=== PATIENT | female | born 1985 | race Caucasian/White ===

== ENCOUNTER 2017-07-27 21:53 | Emergency (ER) | payer MEDICAID ==
[~2017-07-27] VITALS: Ht 154.9 cm; Wt 60.8 kg
[~2017-07-27 21:53] MED LIST: AFRIN15 ML NS; AMOXICILLIN 50500 M1 PO; BAYER ADVANCED500 MG PO; CIPROFLOXACIN500 M1 PO; HYDROCODON-ACE1 EACH PO; IBUPROFEN 800800 M1 PO; IRON325 PO; MEDROLDOSEPACK PO; MOBIC7.5 MG PO; NAPROSYN500 M1 PO; NAPROSYN500 MG; NOHOMEMEDICATIONS; NORCO 5-325 TA1 EACH PO; PHENAZOPYRIDIN200 M2 PO; ROBAXIN500 MG PO; TIZANIDINE HCL4 M1; ULTRAM 50MG TAB50 MG PO; VICODIN 5-5001 EACH PO; ZANTAC 150MG T150 MG PO; ZOFRAN ODT4 MG PO; ZPAK PO
[2017-07-27 22:06] LABS: URINE BILIRUBIN NEGATIVE (Negative); URINE BLOOD NEGATIVE (Negative); URINE CLARITY CLEAR; URINE COLOR YELLOW; URINE GLUCOSE-RANDOM NEGATIVE (Negative); URINE KETONES NEGATIVE (Negative); URINE LEUKOCYTES-REFLEX NEGATIVE (Negative); URINE NITRITE-REFLEX NEGATIVE (Negative); URINE PROTEIN NEGATIVE (Negative); URINE SPECIFIC GRAVITY 1.015 (1.005-1.030)
[2017-07-27] MEDS ORDERED: ZOFRAN ODT4 MG DISSOLVE (22:06)
[2017-07-27 22:34] LABS: ABSOLUTE BASOPHILS 0.1 thou/uL (0.0-0.2); ABSOLUTE EOSINOPHILS 0.5 thou/uL (0.0-0.7); ABSOLUTE LYMPHOCYTES 2.9 thou/uL (0.8-5.3); ABSOLUTE MONOCYTES 0.6 thou/uL (0.0-1.2); ABSOLUTE NEUTROPHILS 5.2 thou/uL (1.6-8.1); BASOPHILS 0.9 %; EOSINOPHILS 5.1 %; HEMATOCRIT 37.7 % (37.0-47.0); HEMOGLOBIN 13.4 gm/dL (12.0-15.0); LYMPHOCYTES 30.9 %; MCH 32.3 pg (26.0-34.0); MCHC 35.5 g/dL (28.0-37.0); MCV 91.1 fL (80.0-100.0); MONOCYTES 6.8 %; MPV 7.1 fl. (7.2-11.1); NUCLEATED RBCS 0 /100WBC; PLATELET COUNT* 273 thou/uL (150-400); POLYS 56.3 %; RBC 4.13 mil/uL (4.20-5.00); RDW-CV 12.1 % (10.5-14.5); WBC 9.2 thou/uL (4.0-11.0)
[2017-07-27 22:53] LABS: CALCIUM 8.6 mg/dL (8.5-10.1); CREATININE 0.7 mg/dL (0.6-1.3); POTASSIUM 3.5 mmol/L (3.5-5.1)
[2017-07-27 22:58] LABS: ALBUMIN 3.9 g/dL (3.4-5.0); TOTAL BILIRUBIN 0.3 mg/dL (<0.1-1.0); TOTAL PROTEIN 7.2 g/dL (6.4-8.2)
[2017-07-27] MEDS ORDERED: PROTONIX40 M1 PO (23:09)
[2017-07-27 23:25] VITALS: BP 128/75
== END 2017-07-27 23:15 | disposition home or self-care (01) ==
LOC: M.ERS 21:53
PROVIDERS: Physician Assistant
DX: K29.00 Acute gastritis without bleeding (principal); M19.90 Unspecified osteoarthritis, unspecified site; F17.210 Nicotine dependence, cigarettes, uncomplicated; Z90.710 Acquired absence of both cervix and uterus; Z88.1 Allergy status to other antibiotic agents; Z88.2 Allergy status to sulfonamides; Z88.8 Allergy status to other drugs, medicaments and biological substances

== ENCOUNTER 2020-09-15 19:54 | Emergency (ER) | payer OTHER ==
[~2020-09-15] VITALS: Ht 154.9 cm; Wt 66.0 kg
[~2020-09-15 19:54] MED LIST changes: +PROTONIX40 M1 PO; +ZOFRAN ODT4 MG DISSOLVE
[2020-09-15 20:16] LABS: URINE BILIRUBIN NEGATIVE (Negative); URINE BLOOD TRACE (Negative); URINE CLARITY CLEAR; URINE COLOR YELLOW; URINE GLUCOSE-RANDOM NEGATIVE (Negative); URINE KETONES NEGATIVE (Negative); URINE LEUKOCYTES-REFLEX NEGATIVE (Negative); URINE NITRITE-REFLEX NEGATIVE (Negative); URINE PROTEIN NEGATIVE (Negative); URINE SPECIFIC GRAVITY >= 1.030 (1.005-1.030); URINE UROBILINOGEN 0.2 E.U./dl (0.2-1.0)
[2020-09-15 20:28] LABS: ABSOLUTE BASOPHILS 0.1 thou/uL (0.0-0.2); ABSOLUTE EOSINOPHILS 0.2 thou/uL (0.0-0.7); ABSOLUTE LYMPHOCYTES 2.4 thou/uL (0.8-5.3); ABSOLUTE MONOCYTES 0.7 thou/uL (0.0-1.2); ABSOLUTE NEUTROPHILS 5.4 thou/uL (1.6-8.1); BASOPHILS 0.8 %; EOSINOPHILS 1.7 %; HEMATOCRIT 37.3 % (37.0-47.0); HEMOGLOBIN 13.1 gm/dL (12.0-15.0); LYMPHOCYTES 27.5 %; MCH 32.3 pg (26.0-34.0); MCHC 35.2 g/dL (28.0-37.0); MCV 91.8 fL (80.0-100.0); MONOCYTES 8.4 %; MPV 6.9 fl. (7.2-11.1); NUCLEATED RBCS 0 /100WBC; PLATELET COUNT* 265 thou/uL (150-400); POLYS 61.6 %; RBC 4.07 mil/uL (4.20-5.00); RDW-CV 11.9 % (10.5-14.5); WBC 8.8 thou/uL (4.0-11.0)
[2020-09-15 20:37] LABS: CALCIUM 9.2 mg/dL (8.5-10.1); CREATININE 0.8 mg/dL (0.6-1.3); POTASSIUM 3.7 mmol/L (3.5-5.1)
[2020-09-15 20:39] LABS: ALBUMIN 3.8 g/dL (3.4-5.0)
[2020-09-15 20:58] LABS: TOTAL BILIRUBIN 0.4 mg/dL (<0.1-1.0); TOTAL PROTEIN 7.1 g/dL (6.4-8.2)
[2020-09-15 22:02] LABS: AMP/METHAMP Negative (Negative); BARBITURATES Negative (Negative); BENZODIAZEPINES Negative (Negative); COCAINE Negative (Negative); METHADONE Negative (Negative); OPIATES Negative (Negative); PCP Negative (Negative); THC Negative (Negative)
[2020-09-15] MEDS ORDERED: FLEXERIL PO (22:14)
[2020-09-15] MEDS ORDERED: HYDROCODON-ACE1 EAC8 PO (22:14)
[2020-09-15 22:50] VITALS: BP 117/81
== END 2020-09-15 22:50 | disposition home or self-care (01) ==
LOC: M.ERS 19:54
PROVIDERS: Emergency Medicine
DX: S20.212A Contusion of left front wall of thorax, initial encounter (principal); M19.90 Unspecified osteoarthritis, unspecified site; F17.210 Nicotine dependence, cigarettes, uncomplicated; Z88.1 Allergy status to other antibiotic agents; Z90.710 Acquired absence of both cervix and uterus; Z98.890 Other specified postprocedural states; Z87.442 Personal history of urinary calculi; Z90.49 Acquired absence of other specified parts of digestive tract; Z88.2 Allergy status to sulfonamides; Z88.6 Allergy status to analgesic agent; Z79.899 Other long term (current) drug therapy; W00.0XXA Fall on same level due to ice and snow, initial encounter; Y93.89 Activity, other specified; Y92.89 Other specified places as the place of occurrence of the external cause; Y99.8 Other external cause status

== ENCOUNTER 2020-10-13 16:18 | Emergency (ER) | payer OTHER ==
[~2020-10-13] VITALS: Ht 154.9 cm; Wt 60.8 kg
[~2020-10-13 16:18] MED LIST changes: +FLEXERIL PO; +HYDROCODON-ACE1 EAC8 PO
[2020-10-13 17:22] LABS: ABSOLUTE BASOPHILS 0.1 thou/uL (0.0-0.2); ABSOLUTE EOSINOPHILS 0.1 thou/uL (0.0-0.7); ABSOLUTE LYMPHOCYTES 2.1 thou/uL (0.8-5.3); ABSOLUTE MONOCYTES 0.6 thou/uL (0.0-1.2); ABSOLUTE NEUTROPHILS 6.6 thou/uL (1.6-8.1); BASOPHILS 0.8 %; EOSINOPHILS 1.5 %; HEMATOCRIT 41.5 % (37.0-47.0); HEMOGLOBIN 14.3 gm/dL (12.0-15.0); LYMPHOCYTES 22.3 %; MCH 31.9 pg (26.0-34.0); MCHC 34.5 g/dL (28.0-37.0); MCV 92.7 fL (80.0-100.0); MONOCYTES 6.7 %; NUCLEATED RBCS 0 /100WBC; PLATELET COUNT* 278 thou/uL (150-400); POLYS 68.7 %; RBC 4.47 mil/uL (4.20-5.00); RDW-CV 12.1 % (10.5-14.5); WBC 9.6 thou/uL (4.0-11.0)
[2020-10-13 17:32] LABS: CALCIUM 9.3 mg/dL (8.5-10.1); CREATININE 0.7 mg/dL (0.6-1.3); POTASSIUM 3.4 mmol/L (3.5-5.1)
[2020-10-13 17:37] LABS: ALBUMIN 4.1 g/dL (3.4-5.0); TOTAL BILIRUBIN 0.5 mg/dL (<0.1-1.0); TOTAL PROTEIN 7.9 g/dL (6.4-8.2)
[2020-10-13] MEDS ORDERED: FLEXERIL PO (17:46)
[2020-10-13] MEDS ORDERED: KLONOPIN0.5 MG PO (17:46)
[2020-10-13 18:09] VITALS: BP 112/80
--- NOTE | 2020-10-14 09:59 | EKG ---
[place] [address] ELECTROCARDIOGRAM REPORT Name: JANIYA VAZQUEZ Room: [facility]#: [id number] Admission: 10/13/20 Attend Phys: Discharge: 10/13/20 Date of : 89 Date of Service: 10/13/20 170 Report #: [id number] THIS REPORT FOR: //name// [facility] ED Test Date: 2020-10-13 Test Time: 17:02:59 Pat Name: JANIYA VAZQUEZ Department: Room: Gender: Electrical Systems Engineer: Wali : 1985 Requested By: Melba Rosenthal Order Number: [id number] MD: Sandro Hubbard Measurements Intervals [place] Rate: 76 P: 58 [place]: 137 QRS: 64 QRSD: 112 T: 60 QT: 394 QTc: 444 Interpretive Statements Sinus rhythm Borderline intraventricular conduction delay No previous ECG available for comparison Electronically Signed On 10-14-2020 9:58:48 CDT by Sandro Hubbard [email or web address] <ELECTRONICALLY SIGNED> By: Sandro Hubbard MD, [facility] 10/14/20 0958 01 01 Sandro Hubbard MD, FAC /EPI
== END 2020-10-13 18:09 | disposition home or self-care (01) ==
LOC: M.ERS 16:18
PROVIDERS: Nurse Practitioner Family
DX: F41.9 Anxiety disorder, unspecified (principal); I25.10 Atherosclerotic heart disease of native coronary artery without angina pectoris; M19.90 Unspecified osteoarthritis, unspecified site; F32.9 Major depressive disorder, single episode, unspecified; F17.210 Nicotine dependence, cigarettes, uncomplicated; Z88.1 Allergy status to other antibiotic agents; Z88.2 Allergy status to sulfonamides; Z88.6 Allergy status to analgesic agent; Z90.710 Acquired absence of both cervix and uterus; Z98.890 Other specified postprocedural states; Z87.442 Personal history of urinary calculi; Z90.49 Acquired absence of other specified parts of digestive tract

== ENCOUNTER 2020-12-15 15:29 | Emergency (ER) | payer OTHER ==
[~2020-12-15] VITALS: Ht 154.9 cm; Wt 60.8 kg
[~2020-12-15 15:29] MED LIST changes: +KLONOPIN0.5 MG PO
[2020-12-15 15:30] VITALS: BP 118/69
[2020-12-15] MEDS ORDERED: METHOCARBAMOL500 M2 PO (16:26)
== END 2020-12-15 16:57 | disposition home or self-care (01) ==
LOC: M.ERS 15:29
DX: F41.9 Anxiety disorder, unspecified (principal); M54.6 Pain in thoracic spine; F32.9 Major depressive disorder, single episode, unspecified; M19.90 Unspecified osteoarthritis, unspecified site; F17.210 Nicotine dependence, cigarettes, uncomplicated; Z90.711 Acquired absence of uterus with remaining cervical stump; Z98.890 Other specified postprocedural states; Z87.442 Personal history of urinary calculi; Z90.49 Acquired absence of other specified parts of digestive tract; Z88.1 Allergy status to other antibiotic agents; Z88.2 Allergy status to sulfonamides; Z88.8 Allergy status to other drugs, medicaments and biological substances

== ENCOUNTER 2021-02-03 17:26 | Emergency (ER) | payer OTHER ==
[~2021-02-03] VITALS: Ht 154.9 cm; Wt 60.8 kg
[~2021-02-03 17:26] MED LIST changes: +METHOCARBAMOL500 M2 PO
[2021-02-03] MEDS ORDERED: FLEXERIL PO (18:17)
[2021-02-03] MEDS ORDERED: PREDNISONE 10 M10 MG PO (18:17)
[2021-02-03] MEDS ORDERED: APAP W/CODEINE1 TA2 PO (18:17)
[2021-02-03 18:49] VITALS: BP 110/57
== END 2021-02-03 18:50 | disposition home or self-care (01) ==
LOC: M.ERS 17:26
DX: M54.5 Low back pain (principal); M19.90 Unspecified osteoarthritis, unspecified site; F17.210 Nicotine dependence, cigarettes, uncomplicated; Z88.1 Allergy status to other antibiotic agents; Z88.2 Allergy status to sulfonamides; Z88.6 Allergy status to analgesic agent; Z90.710 Acquired absence of both cervix and uterus; Z98.890 Other specified postprocedural states; Z87.442 Personal history of urinary calculi; Z90.49 Acquired absence of other specified parts of digestive tract

== ENCOUNTER 2021-04-26 16:03 | Emergency (ER) | payer OTHER ==
[~2021-04-26] VITALS: Ht 154.9 cm; Wt 60.8 kg
[~2021-04-26 16:03] MED LIST changes: +APAP W/CODEINE1 TA2 PO; +PREDNISONE 10 M10 MG PO
[2021-04-26] MEDS ORDERED: FLEXERIL PO (16:23)
[2021-04-26] MEDS ORDERED: MEDROLDOSEPACK PO (16:23)
[2021-04-26 16:34] VITALS: BP 122/79
== END 2021-04-26 16:36 ==
LOC: M.ERS 16:03
DX: S39.012A Strain of muscle, fascia and tendon of lower back, initial encounter (principal); M25.562 Pain in left knee; M25.552 Pain in left hip; M19.90 Unspecified osteoarthritis, unspecified site; F41.9 Anxiety disorder, unspecified; F32.9 Major depressive disorder, single episode, unspecified; F17.210 Nicotine dependence, cigarettes, uncomplicated; Z90.49 Acquired absence of other specified parts of digestive tract; Z87.442 Personal history of urinary calculi; Z98.890 Other specified postprocedural states; Z90.711 Acquired absence of uterus with remaining cervical stump; Z88.1 Allergy status to other antibiotic agents; Z88.2 Allergy status to sulfonamides; W17.2XXA Fall into hole, initial encounter; Y93.89 Activity, other specified; Y92.89 Other specified places as the place of occurrence of the external cause; Y99.8 Other external cause status